=== PATIENT | male | born 1965 | race Caucasian/White ===

== ENCOUNTER 2024-12-07 06:04 | Emergency (ER) | payer OTHER ==
[2024-12-07] MEDS ORDERED: Cephalexin 500 MG Cap ONE (07:00)
== END 2024-12-07 07:15 | disposition home or self-care (01) ==
LOC: LB.ED 06:04
DX: L03.115 Cellulitis of right lower limb (principal); Z79.899 Other long term (current) drug therapy
CPT/HCPCS: 99283; A9270-GY